=== PATIENT | female | born 1995 | race Hispanic/Latino ===

== ENCOUNTER 2018-10-27 07:27 | Day surgery (SDC) | payer BC ==
[2018-10-27 08:16] LABS: Basophils # (Auto) 0.1 K/mm3 (0.0-0.1); Basophils % (Auto) 0.8 % (0.0-1.8); Eosinophils # (Auto) 0.1 K/mm3 (0.0-0.4); Eosinophils % (Auto) 2.1 % (0.0-4.3); Hematocrit 41.1 % (30.3-42.9); Hemoglobin 13.6 gm/dl (10.1-14.3); Lymphocytes # (Auto) 2.5 K/mm3 (1.2-5.4); Lymphocytes % (Auto) 35.9 % (13.4-35.0); Mean Corpuscular HGB Conc 33 % (30-34); Mean Corpuscular Volume 81 fl (79-97); Monocytes # (Auto) 0.7 K/mm3 (0.0-0.8); Monocytes % (Auto) 10.8 % (0.0-7.3); Platelet Count 265 K/mm3 (140-440); Red Blood Count 5.05 M/mm3 (3.65-5.03); Red Cell Distribution Width 13.4 % (13.2-15.2)
[2018-10-27] MEDS ORDERED: NACL 0.9% 500 ML 500 ML ONE (08:17)
[2018-10-27 08:27] LABS: INR 0.95 (0.87-1.13)
[2018-10-27 08:28] LABS: Partial Thromboplastin Time 28.2 Sec. (24.2-36.6)
[2018-10-27 08:35] LABS: BUN/Creatinine Ratio 23; Blood Urea Nitrogen 14 mg/dL (7-17); Calcium 9.1 mg/dL (8.4-10.2); Hemolysis Index 60
[2018-10-27] MEDS ORDERED: HEPARIN/NS 5000 UNIT/500ML(CATH LAB) 1,000 ML IR ONE (09:26)
[2018-10-27] MEDS ORDERED: VERSED ONE ×2 (09:26→10:14)
[2018-10-27] MEDS ORDERED: XYLOCAINE 2% INFILTRATI ONE (09:27)
[2018-10-27] MEDS ORDERED: TORADOL ONE (09:27)
[2018-10-27] MEDS: SUBLIMAZE ONE ×2 (10:09→10:12)
[2018-10-27] MEDS ORDERED: SUBLIMAZE ONE (10:14)
--- NOTE | 2018-10-27 11:25 | Short Stay Summary ---
Short Stay Documentation Date of service: 10/27/18 - History Principal diagnosis: Venous compression H&P: obtained from office - Allergies and Medications Current Medications: Allergies No Known Allergies Allergy (Unverified 10/27/18 07:27) Home Medications Medication Instructions Recorded Confirmed Last Taken Type Allergy Shots 40 units SUB-Q 3XW 10/27/18 10/27/18 10/23/18 History oxyCODONE /ACETAMINOPHEN [Percocet 1 tab PO Q6HR PRN #10 tablet 10/27/18 Unknown Rx 5/325] - Brief post op/procedure progress note Date of procedure: 10/27/18 Pre-op diagnosis: Venous compression Post-op diagnosis: same Procedure: LLE venogram and venoplasty Anesthesia: local Surgeon: SHERRY KIMBLE Estimated blood loss: minimal Pathology: none Condition: stable - Disposition Condition at discharge: Good Disposition: [id number] TO HOME OR SELFCARE Short Stay Discharge Plan Activity: advance as tolerated Weight Bearing Status: Weight Bear as Tolerated Diet: regular Wound: keep clean and dry, per your surgeon's advice Follow up with: KRYSTAL ALMEIDA MD [Other] - 7 Days Prescriptions: oxyCODONE /ACETAMINOPHEN [Percocet 5/325] 1 tab PO Q6HR PRN #10 tablet PRN Reason: Pain
--- NOTE | 2018-10-27 11:29 | Operative Report ---
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 The patient was brought to the angiographic suite and placed in supine position on the examination table. Initial ultrasound evaluation of her arm demonstrated patent right brachial veins. The patient's right upper arm was prepped and draped in the usual sterile fashion. 1% lidocaine was used for anesthesia. Under ultrasound guidance, the right brachial vein was cannulated with a 7 cm 21-gauge needle. A 0.01 a guidewire was advanced centrally. The needle was removed and a low-profile 5 British sheath placed. A 5 British vertebral catheter and 0.035 Bentson guidewire were then used to selectively cannulate the left common femoral vein under fluoroscopy. Contrast was injected. This demonstrates significant compression of the left common iliac vein with paraspinal collaterals as well as pelvic collaterals that extend from the left to the right to drain the left lower extremity. The guidewire was answered across the lesion into the left common femoral vein and the catheter removed. Angioplasty was first performed using a 12 mm x 6 cm a balloon insufflated to normal atmospheres for 2 minutes. Post angioplasty imaging demonstrating reduction in the visualization of the pelvic collaterals. The lesion was then treated using a 12 mm x 40 mm drug-coated balloon. The balloon was insufflated to normal atmospheres for 3 minutes. Post venoplasty imaging demonstrated a reduction of the pelvic collaterals and brisk flow throughout the common iliac vein. At this point, the guidewire catheters were removed. The sheath was removed and hemostasis achieved using manual compression. A sterile compression dressing was then applied. The patient tolerated the procedure well. There were no immediate post procedure complications. Conscious sedation was performed and the guidance of radiologic nursing. Continuous cardiopulmonary monitoring was utilized. Impression: Left lower extremity venogram demonstrating significant compression of the left common iliac vein with paraspinal and cross pelvic collaterals draining the left leg into the right. 2) Venoplasty of the left common iliac vein as described with residual 20-30% stenosis. Given the patient's age, the patient will need to return when she becomes re-symptomatic as she is not yet a candidate for stent placement given her age and child bearing status.
[2018-10-27] MEDS ORDERED: NACL 0.9% 500 ML 500 ML IV SCH (13:00)
[2018-10-27 14:49] VITALS: BP 128/80
== END 2018-10-27 12:29 | disposition home or self-care (01) ==
LOC: CATHLABREC 07:27
PROVIDERS: ATTEND Radiology Diagnostic Radiology
DX: I87.1 Compression of vein (principal); Z79.899 Other long term (current) drug therapy; Z83.3 Family history of diabetes mellitus; Z82.49 Family history of ischemic heart disease and other diseases of the circulatory system; Z80.1 Family history of malignant neoplasm of trachea, bronchus and lung
CPT/HCPCS: 36415; 37248; 75820; 76937; 80048; 85025; 85610; 85730; 99156; 99157; C1725; C1769; C1887; C1894; C2623; J1644; J1885; J2250; J3010; J7040; Q9967